=== PATIENT | male | born 1970 | race Caucasian/White ===

== ENCOUNTER → 2016-09-23 | Day surgery (SDC) | payer BC ==
[~2016-09-23] MED LIST: BACTRIM 400-801 EACH PO; FLOMAX0.4 M1 PO; LORTAB 7.5-3251 EACH PO; PROMETHAZINE12.5 MG PO; PYRIDIUM PO
--- NOTE | ~2016-09-23 | HP ---
Unit #: [id number] #: [id number] Patient: JHONNY GARZA [id number] [address] [address] [id number] O MR#: [id number] NAME: JHONNY GARZA ROOM: Age: 45 Sex: M Admission Date: 09/23/2016 : 1970 Attending Physician: Hayden López M.D. Primary Care Physician: Hayden López M.D. HISTORY AND PHYSICAL ADMITTING DIAGNOSIS Right ureteral renal calculi. DISCHARGE DIAGNOSIS Right ureteral renal calculi, status post right ureteroscopy. HISTORY OF PRESENT ILLNESS The patient is a 45-year-old white male who underwent a right ESWL for right renal calculi two days prior to admission. He presented to the [facility] emergency room with small distal right renal calculi, as well as right renal fragments. He had uncontrollable pain. He was leaving town tomorrow. He is being transferred from [facility] for further management. PAST MEDICAL HISTORY 1. Renal calculi. 2. ESWL. ALLERGIES Are documented in the chart. PHYSICAL EXAMINATION VITAL SIGNS: Afebrile, vital signs stable. HEENT: Normocephalic and atraumatic. Patient is breathing comfortably. ABDOMEN: Soft, nontender, nondistended. No clubbing, cyanosis or edema. ASSESSMENT AND PLAN Right ureteral and renal calculi. He will be admitted for cystoscopy, right ureteroscopy, possible laser lithotripsy, and stent. The risks, benefits and alternatives have been discussed with the patient. Informed consent was obtained and we will proceed. Dictated by Lnida Kowalski/dariel TD: 10/02/2016 07:22 JOB #: [id number] Unit #: [id number] #: [id number] Patient: JHONNY GARZA HISTORY AND PHYSICAL Page 1 of 1 X Hayden López MD X HISTORY AND PHYSICAL
--- NOTE | ~2016-09-23 | OR ---
Unit #: [id number] #: [id number] Patient: JHONNY ALDRICH [id number] [address] [address] [id number] O MR#: [id number] NAME: JHONNY ALDRICH ROOM: Date of Procedure: 09/23/2016 Admission Date: 09/23/2016 Surgeon: Hayden López M.D. : 1970 Attending Physician: Hayden López M.D. Primary Care Physician: Hayden López M.D. PROCEDURE OPERATIVE NOTE PREOPERATIVE DIAGNOSIS Right ureteral and renal calculi. POSTOPERATIVE DIAGNOSIS Right ureteral and renal calculi. PROCEDURE PERFORMED 1. Cystoscopy. 2. Right ureterostomy. 3. Laser lithotripsy. 4. Right retrograde pyelogram. 5. Interpretation of right retrograde pyelogram. 6. A right 6-Namibian x 26 cm double-J stent, with string attached. SURGEON Hayden López M.D. ANESTHESIA General. INDICATIONS FOR PROCEDURE Mr. Aldrich is a pleasant 45-year-old gentleman who underwent a right ESWL for a renal calculi two days ago. He presented to the [facility] ER with a small right distal ureteral calculi as well as right renal fragments. He had uncontrollable pain. He is leaving town tomorrow. The risks, benefits and alternatives including bleeding, infection, damage to adjacent structures including the kidney, ureter, bladder and urethra, need for further surgery, as well as risk of anesthesia were explained to the patient. Informed consent was obtained. He wished to proceed. DESCRIPTION OF PROCEDURE The patient was taken to the operative suite and properly identified. After the application of satisfactory general anesthetic, the patient was placed in a dorsal lithotomy position. Genitalia were prepped and draped in the usual sterile fashion. All pressure points were padded to the satisfaction of surgical, anesthetic and nursing teams. I introduced a rigid 22-Namibian cystoscope and the entire urethra was normal. The prostate was not obstructing the bladder and no tumors, stones or masses. I passed a 0.035 Sensor wire which coiled in the renal pelvis. I sequentially dilated the distal ureter from 6-Namibian to 12-Namibian. I passed a semirigid ureteroscope alongside the wire to the mid ureter. Unit #: [id number] #: [id number] Patient: JHONNY ALDRICH There were no stones in the distal ureter. The patient had noted that he passed several fragments on the way to the hospital. I then replaced the wire and passed an 11/13 Namibian x 35 cm ureteral access sheath into the mid ureter. I passed a flexible ureteroscope. I performed panendoscopy of the kidney. In the lower pole of the kidney there were multiple stone fragments including several larger ones. I used a 270 micron Holmium laser on settings of 0.6 J and 6 Hz. It was a fairly hard stone. I ended up increasing to 1 J and 10 Hz. I performed an extensive stone basket extraction. All significant stone fragments were removed. I shot a retrograde pyelogram. The findings were as follows. Interpretation of right retrograde pyelogram: There was moderate hydroureteronephrosis. There was a single collecting system. There are no filling defects. I carefully (1) my way out of the ureter. I passed a 6 Namibian x 26 cm double J stent which foiled in the mid pole of the kidney and in the bladder. I did leave the string attached. Uro-jet was passed. Patient tolerated the procedure well without complications. He was transported stable and extubated to the PACU. PLAN He should have this stent for five to seven days. He does have a string. He can follow up for removal. No x-rays are required. Dictated by... Linda Kowalski/olayinka TD: 09/23/2016 14:47 JOB #: [id number] PROCEDURE OPERATIVE NOTE Page 1 of 1 X Hayden López MD X PROCEDURE OPERATIVE NOTE
== END | disposition home or self-care (01) ==
LOC: CSSDAY 11:10
PROVIDERS: Urology
DX: N20.2 Calculus of kidney with calculus of ureter (principal); Z87.442 Personal history of urinary calculi; K21.9 Gastro-esophageal reflux disease without esophagitis; M19.90 Unspecified osteoarthritis, unspecified site
CPT/HCPCS: 82365; 88300; C1758; C2617; J0131; J0690; J1100; J2175; J2250; J2405; J3010